=== PATIENT | female | born 1990 | race American Indian/Alaskan Native ===

== ENCOUNTER 2018-04-14 10:54 | Emergency (ER) | payer MEDICAID ==
[2018-04-14 11:03] VITALS: BP 116/74
[2018-04-14 12:14] LABS: Bilirubin,Urine NEG (Negative); Blood,Urine MOD (Negative); Color,Urine Amber (Yellow); Hyaline Casts,Urine 1 /LPF; Mucus,Urine 3+ /HPF
[2018-04-14 12:17] LABS: HCG Qualitative,Urine Negative (Negative)
[2018-04-14] MEDS ORDERED: MOTRIN PO ONE (14:48)
--- NOTE | 2018-04-14 14:52 | Emergency Department Report ---
Blank Doc - Documentation Documentation: 28-year-old female with no past medical history presents to the hospital complaints of intermittent significant abdominal pain for the last 2 weeks. Pain is cramping, intermittent, rated 8/10 intensity. Worse with palpation. No specific alleviating factors reported. Positive nausea and decreased by mouth intake reported without vomiting. Patient denies fever. No increase in vaginal discharge. Currently on menstrual cycle. Recent new sexual partner with unprotected sex reported. Inquiring about HIV test. Mild suprapubic tenderness UA reviewed positive blood secondary to menstrual cycle infection or Motrin provided for pain Pelvic exam set up with cultures mid Level to follow
--- NOTE | 2018-04-14 15:12 | Emergency Department Report ---
ED Abdominal Pain HPI - General Chief Complaint: Abdominal Pain Stated Complaint: STOMACH PAIN Time Seen by Provider: 04/14/18 14:20 Source: patient Mode of arrival: Ambulatory Limitations: No Limitations - History of Present Illness Initial Comments: 28-year-old female with no past medical history presents to the hospital complaints of intermittent significant abdominal pain for the last 2 weeks. Pain is cramping, intermittent, rated 8/10 intensity. Worse with palpation. No specific alleviating factors reported. Positive nausea and decreased by mouth intake reported without vomiting. Patient denies fever. No increase in vaginal discharge. Currently on menstrual cycle. Recent new sexual partner with unprotected sex reported. Inquiring about HIV test. Severity scale (0 -10): 6 - Related Data Previous Rx's Medication Instructions Recorded Last Taken Type Ibuprofen [Motrin] 800 mg PO Q8HR PRN #30 tablet 04/14/18 Unknown Rx Allergies Allergy/AdvReac Type Severity Reaction Status Date / Time No Known Allergies Allergy Unverified 09/17/14 23:50 ED Review of Systems ROS: Stated complaint: STOMACH PAIN Other details as noted in HPI Comment: All other systems reviewed and negative ED Past Medical Hx - Past Medical History Previous Medical History?: Yes Hx Hypertension: Yes (during ) Hx Diabetes: No Hx Deep Vein Thrombosis: No Hx Renal Disease: No Hx Sickle Cell Disease: No Hx Seizures: No Hx Asthma: No Hx HIV: No - Surgical History Past Surgical History?: No - Social History Smoking Status: Never Smoker Substance Use Type: None - Medications Home Medications: Home Medications Medication Instructions Recorded Confirmed Last Taken Type Ibuprofen [Motrin] 800 mg PO Q8HR PRN #30 tablet 04/14/18 Unknown Rx ED Physical Exam - General Limitations: No Limitations - Other Other exam information: General: No limitations, patient is alert in no acute distress Head exam: Atraumatic, normocephalic Eyes exam: Normal appearance ENT: Moist mucous membrane, normal oropharynx Neck exam: Normal inspection, full range of motion, no meningismus nontender Respiratory exam: Clear to auscultation bilateral, no wheezes, rales, crackles Cardiovascular: Normal rate and rhythm, normal heart sounds Abdomen: Soft, nondistended, mild suprapubic tenderness, no rebound or guarding Extremity: Full range of motion normal inspection no deformity Back: Normal Inspection, full range of motion, no tenderness Neurologic: Alert, oriented x3, cranial nerves intact, no motor or sensory deficit Psychiatric: normal affect, normal mood Skin: Warm, dry, intact ED Course Vital Signs 04/14/18 04/14/18 10:59 14:57 Temperature 98.3 F Pulse Rate 79 Respiratory 20 14 Rate Blood Pressure 116/74 O2 Sat by Pulse 99 Oximetry ED Medical Decision Making - Medical Decision Making Superpubic cramping pain intermittent 2 weeks Mild superior pubic tenderness Nontoxic appearing without associated symptoms with the exception of nausea negative, UA negative Pelvic exam declined Motrin and follow-up provide 1 dose of Motrin in ED - Differential Diagnosis cervicitis, vaginitis, , menstrual cramps, ovarian cyst Critical Care Time: No Critical care attestation.: If time is entered above; I have spent that time in minutes in the direct care of this critically ill patient, excluding procedure time. ED Disposition Clinical Impression: Pelvic pain, Crampy pain associated with menses Disposition: TO HOME OR SELFCARE Is pt being admited?: No Does the pt Need Aspirin: No Condition: Stable Instructions: Abdominal Pain (ED) Additional Instructions: You have declined offer for pelvic exam today therefore we are unable to rule out any associated infection. Your urine results today did not reveal infection or . Follow-up with [facility], primary care doctor, or the health department (may do std testing) for evaluation. Prescriptions: Ibuprofen [Motrin] 800 mg PO Q8HR PRN #30 tablet PRN Reason: Pain , Severe (7-10) Referrals: [facility] [Outside] - 3-5 Days (Health department) [facility] [Provider Group] - 3-5 Days (Primary care clinic) PELON MUSTAFA MD [Staff Physician] - 3-5 Days (Primary care doctor) JORGE SANTANA MD [Staff Physician] - 3-5 Days ([facility] doctor) Time of Disposition: 15:11
== END 2018-04-14 15:18 | disposition home or self-care (01) ==
LOC: ED 10:54
DX: R10.2 Pelvic and perineal pain (principal)
CPT/HCPCS: 81001; 81025; 99283